=== PATIENT | male | born 1960 | race Caucasian/White ===

== ENCOUNTER → 2016-10-03 | Outpatient (CLI) | payer OTHER ==
[2016-10-03 09:09] LABS: BASO % 0.7 % (0.0-1.0); EOS # 0.2 K/mm3 (0.0-0.50); EOS % 4.1 % (0.0-3.0); LARGE UNSTAINED CELL # 0.1 K/mm3 (0.0-0.4); LARGE UNSTAINED CELL % 2.7 % (0.0-4.0); LYMPH # 0.9 K/mm3 (1.5-4.5); MEAN CORPUSCULAR HGB CONC 34.8 g/dl (32.0-36.5); MEAN CORPUSCULAR VOLUME 97.5 fl (80.0-96.0); MONO # 0.2 K/mm3 (0.0-0.8); MONO % 5.2 % (0.0-5.0); NEUTROPHILS # 2.6 K/mm3 (1.8-7.7); NEUTROPHILS % 64.2 % (36.0-66.0); PLATELET COUNT, AUTOMATED 197 k/mm3 (150-450); RED CELL DISTRIBUTION WIDTH 12.5 % (11.5-14.5); WHITE BLOOD COUNT 4.1 K/mm3 (4.0-10.0)
[2016-10-03 09:24] LABS: ANION GAP 6 MEQ/L (8-16); BLOOD UREA NITROGEN 5 MG/DL (7-18); CARBON DIOXIDE LEVEL 36 MEQ/L (21-32); CHLORIDE LEVEL 104 MEQ/L (98-107); GLOMERULAR FILTRATION RATE > 60.0 (>56); GLUCOSE, FASTING 82 MG/DL (70-105); POTASSIUM SERUM 3.9 MEQ/L (3.5-5.1); SODIUM LEVEL 146 MEQ/L (136-145)
== END ==
LOC: M LAB 08:48
PROVIDERS: ATTEND Internal Medicine Hepatology
DX: E11.43 Type 2 diabetes mellitus with diabetic autonomic (poly)neuropathy (principal)

== ENCOUNTER 2016-10-24 17:13 | Emergency (ER) | payer OTHER ==
[2016-10-24] MEDS ORDERED: MORPHINE 2 MG/ML 1ML SYRINGE As Ordered ONE (17:50)
[2016-10-24 18:30] LABS: BASO % 1.1 % (0.0-1.0); EOS # 0.2 K/mm3 (0.0-0.50); EOS % 5.1 % (0.0-3.0); LARGE UNSTAINED CELL # 0.1 K/mm3 (0.0-0.4); LARGE UNSTAINED CELL % 2.6 % (0.0-4.0); LYMPH # 1.4 K/mm3 (1.5-4.5); LYMPH % 26.5 % (24.0-44.0); MEAN CORPUSCULAR HEMOGLOBIN 35.2 pg (27.0-33.0); MEAN CORPUSCULAR HGB CONC 36.2 g/dl (32.0-36.5); MEAN CORPUSCULAR VOLUME 97.3 fl (80.0-96.0); MONO # 0.3 K/mm3 (0.0-0.8); MONO % 6.3 % (0.0-5.0); NEUTROPHILS # 2.7 K/mm3 (1.8-7.7); NEUTROPHILS % 58.3 % (36.0-66.0); PLATELET COUNT, AUTOMATED 216 k/mm3 (150-450); RED CELL DISTRIBUTION WIDTH 13.1 % (11.5-14.5); WHITE BLOOD COUNT 4.7 K/mm3 (4.0-10.0)
[2016-10-24 18:39] LABS: ANION GAP 7 MEQ/L (8-16); BLOOD UREA NITROGEN 17 MG/DL (7-18); CALCIUM LEVEL 9.6 MG/DL (8.5-10.1); CARBON DIOXIDE LEVEL 33 MEQ/L (21-32); CHLORIDE LEVEL 104 MEQ/L (98-107); CREATININE FOR GFR 0.88 MG/DL (0.70-1.30); GLOMERULAR FILTRATION RATE > 60.0 (>56); GLUCOSE, FASTING 103 MG/DL (70-105); POTASSIUM SERUM 4.1 MEQ/L (3.5-5.1); SODIUM LEVEL 144 MEQ/L (136-145)
[2016-10-24] MEDS ORDERED: ISOVUE-370 76% 100ML VIAL (Q9967) As Ordered ONE (18:41)
--- NOTE | 2016-10-24 19:17 | REP ---
Clinical: Trauma . Comparison: None . Findings: The ventricles, sulci, and cisterns are normal in position and appearance. Phillip-white differentiation is maintained. No acute intracranial hemorrhage, mass/mass effect, pathology or trauma/injury. No evidence for acute infarction. No extra-axial fluid collection. Calvarium is intact. Paranasal sinuses and mastoid air cells are clear. Impression: Normal noncontrast head CT. No evidence for acute intracranial pathology or trauma/injury. Signed by Sd Smallwood MD 10/24/2016 07:08 P
--- NOTE | 2016-10-24 19:19 | REP ---
Clinical: Trauma. Technique: Axial noncontrast images from the skull base to the thoracic inlet with coronal and sagittal re-formations. Comparison: 08/31/2012. Findings: Alignment and lordosis is maintained / stable and there is no evidence for acute fracture / compression injury or subluxation. Moderate multilevel degenerative disc osteophyte complexes noted at the C3-4 through C6-7 levels with subtle marginal spurring, disc space narrowing, and small chronic posterior disc bulges similar to prior examination. Mild associated canal stenosis is suggested. The posterior elements and spinous processes are stable and without acute fracture; old injury at the T1 spinous process is unchanged. Paravertebral soft tissues are normal. Impression: No acute fracture / compression injury or subluxation. Moderate multilevel degenerative changes as described above similar to 2012. Signed by Sd Smallwood MD 10/24/2016 07:12 P
--- NOTE | 2016-10-24 19:22 | REP ---
Clinical: Trauma. Technique: Axial images from C6 through L1 with coronal and sagittal re-formations. Findings: Alignment and kyphosis maintained. No acute fracture / compression injury or subluxation is appreciated. Moderate multilevel degenerative changes include endplate irregularities with minimal disc space narrowing and predominately anterolateral right-sided osteophytosis. Spinal canal appears patent. The posterior elements and spinous processes are intact. Impression: Moderate multilevel degenerative changes. No acute fracture / compression injury or subluxation. Signed by Sd Smallwood MD 10/24/2016 07:14 P
--- NOTE | 2016-10-24 19:25 | REP ---
Clinical: Trauma. Technique: Axial noncontrast images from T12 through mid sacrum with coronal and sagittal re-formations. Findings: Alignment and lordosis maintained. There is no evidence for acute fracture / compression injury or subluxation. Moderate multilevel degenerative changes include osteophytosis, endplate sclerosis and disc space narrowing as well as mild hypertrophic facet changes. Findings are most pronounced at the L5-L1 level. Axial soft tissue imaging demonstrates hypertrophic facet changes and ligamentum flavum hypertrophy causing mild canal stenosis at L3-4, L4-5, and L5-L1. Impression: 1. No acute fracture / compression injury or subluxation. 2. Moderate to early advanced multilevel degenerative changes. Signed by Sd Smallwood MD 10/24/2016 07:17 P
--- NOTE | 2016-10-24 19:34 | REP ---
Clinical: Trauma. Technique: Axial contrast enhanced images from the lung bases to the pubic symphysis using 100 ml Isovue 370 intravenous contrast material with coronal and sagittal re-formations. Findings: Lung bases are clear. Visualized portions of the heart and pericardium normal. Liver, spleen, pancreas, gallbladder, bilateral adrenal glands and kidneys are relatively normal. There is no evidence for solid organ injury. A 1.5 cm left renal hypodensities most compatible with cyst. No perinephric stranding is appreciated. A gastrojejunostomy tube is in satisfactory position. There is no evidence for bowel obstruction or acute inflammatory process. Pelvis demonstrates normal bladder and age appropriate prostate/seminal vesicles. No pelvic fluid or ascites. No free air. No adenopathy. Abdominal aorta and vasculature appears normal. Musculoskeletal structures demonstrate age-related changes without evidence for trauma/injury Impression: Gastrojejunostomy tube in satisfactory position. 1.5 cm left renal hypodensity most compatible with cyst. No acute intra-abdominal/pelvic pathology, or trauma/injury. Signed by Sd Smallwood MD 10/24/2016 07:26 P
--- NOTE | 2016-10-24 19:34 | REP ---
Clinical: Trauma. Technique: Axial contrast enhanced images from the thoracic inlet to the upper abdomen using 100 ml Isovue 370 intravenous contrast material with coronal and sagittal re-formations. Findings: The bilateral lung martinez are symmetric, well aerated, and clear. No acute consolidation/contusion, nodule or mass lesion. No pleural effusion/reaction or pneumothorax. Tracheobronchial tree is patent. The mediastinum including heart/pericardium and thoracic aorta appear normal. No pericardial effusion. Surrounding osseous structures are intact without evidence for acute injury or fracture / dislocation. Limited evaluation of the upper abdomen demonstrates gastrojejunostomy tube in stable satisfactory position. Incompletely identified left renal hypodensity likely representing cyst. Impression: Normal contrast enhanced chest CT. No evidence for acute trauma/injury. No acute mediastinal or pleuroparenchymal process. Signed by Sd Smallwood MD 10/24/2016 07:26 P
--- NOTE | 2016-10-24 19:46 | REP ---
Clinical: Trauma. Technique: AP, lateral, bilateral oblique views of the right ankle. Findings: Degenerative changes are appreciated which significantly limit evaluation. No obvious acute fracture or dislocation is appreciated, but subtle acute injury to the lateral malleolus cannot definitively be excluded. Ankle mortise intact. Impression: Limited by degenerative changes. No definite acute fracture appreciated. Clinical correlation is recommended and if necessary repeat evaluation in 3-5 days may be warranted. Signed by Sd Smallwood MD 10/24/2016 07:37 P
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
== END 2016-10-24 20:44 | disposition home or self-care (01) ==
LOC: M ED 17:13
DX: S29.012A Strain of muscle and tendon of back wall of thorax, initial encounter (principal); V43.52XA Car driver injured in collision with other type car in traffic accident, initial encounter; Y92.410 Unspecified street and highway as the place of occurrence of the external cause; Y93.9 Activity, unspecified; Y99.9 Unspecified external cause status; F41.9 Anxiety disorder, unspecified; J45.909 Unspecified asthma, uncomplicated; M79.7 Fibromyalgia; E03.9 Hypothyroidism, unspecified; F43.10 Post-traumatic stress disorder, unspecified; M25.50 Pain in unspecified joint; Z79.82 Long term (current) use of aspirin; Z79.899 Other long term (current) drug therapy; Z88.1 Allergy status to other antibiotic agents; Z88.8 Allergy status to other drugs, medicaments and biological substances; Z88.0 Allergy status to penicillin; Z88.5 Allergy status to narcotic agent
CPT/HCPCS: 36415; 70450; 71260; 72125; 72128; 72131; 73610; 74177; 80048; 85025; 96374; 99284; Q9967

== ENCOUNTER → 2016-10-28 | Outpatient (CLI) | payer OTHER ==
--- NOTE | 2016-10-29 00:14 | ECWPNPC ---
PATIENT NAME: NIKI WEEMS : 1960 GENDER: MALE VISIT DATE: 10/28/2016 DISCHARGE DATE: 10/28/16 1236 VISIT LOCKED DATE TIME: PHYSICIAN: CROW MERCER RESOURCE: CROW MERCER REASON FOR APPOINTMENT 1. FIBROMYALGIA HISTORY OF PRESENT ILLNESS NEW PATIENT CONSULT: WHEN DID YOUR PAIN FIRST START? . BRIEFLY DESCRIBE HOW YOUR PAIN STARTED? . HOW DOES YOUR PAIN CHANGE WITH TIME? . DOES YOUR PAIN AWAKEN YOU FROM SLEEP? . HOW MANY HOURS OF SLEEP DO YOU NORMALLY GET? . ANY DIAGNOSTIC TESTING? . FACILITY WHERE TESTS WERE DONE? ____. PAIN TREATMENT TREATMENT YES CANCER HAVE YOU EVER HAD ANY TYPE OF CANCER?NO NO. PAIN SCREENING: PATIENT HAS A COMPLAINT OF ACUTE OR CHRONIC PAIN YES FALL RISK SCREENING: SCREENING :NO FALLS IN THE PAST YEAR PATTON INVENTORY: QUESTIONNAIRE ASSESSEDYES SCORE VALUE CALCULATED YES SCORE: 19/63. DENIES SUICIDAL OR HOMICIDAL IDEATION TODAY'S VISIT: NOTES: PT REFERRED BY PCP DR PRATHER FOR EVAL AND CARE FOR CHRONIC GENERALIZED PAIN/FIBROMYALGIA. HAS BEEN SEE BY DR GARLAND (RHEUMATOLOGY) AND DR ALVIN MOORE (PAIN MANAGMENT). AT [facility] HAD SOME GENERALIZED DISCOMFORT PRIOR TO 2008 - HAD SEVERE PANIC ATTACK WHICH FELT LIKE A HEART ATTACK. THEN DEVELOPED AN IDIOPATHIC GASTROPARESIS WHICH CAUSED SEVERE WEIGHT LOSS. DEVELOPED SEVERE ALLERGIES AT THIS TIME. SAW DR GARLAND WHO DX FIBRO AND PMR. STATES PREDNISONE CAUSES SEVERE JITTERYNESS SO THIS WAS NOT STARTED. WAS SENT TO SEE DR MOORE WHO RECOMMENDED CYMBALTA BUT FEELS HE CAN NOT USE SERROTONIN MEDS. MARINOLNWAS HELPFUL BUT THIS STOPPED BEING EFFECTIVE. PAIN IS EVERYWHERE. THE WORST IS INCHEST WALL, IN NECK AND ACROSS LOW BACK. SAW DR LIAO IN [place] WHO SAID, "IT'S ALL IN HIS HEAD". EXERCISE CCAN HELP FOR A FEW HOURS.RATES PAIN TODAY 6/10. STATES THE MOST EFFECTIVE TREATMENT HAS BEEN EXERCISE. NOTES MORNINGS ARE THE WORST. CURRENT MEDICATIONS TAKING ADVAIR DISKUS 250-50 MCG/DOSE MISCELLANEOUS INHALATION TAKING PRAVASTATIN SODIUM 40 MG TABLET 1 TABLET ORALLY ONCE A DAY TAKING LEVOTHYROXINE SODIUM 25 MCG TABLET 1 TABLET ON AN EMPTY STOMACH IN THE MORNING ORALLY ONCE A DAY TAKING ALBUTEROL 90 MCG/ACT AEROSOL SOLUTION INHALATION TAKING ZYRTEC 10 MG TABLET 1 TABLET ORALLY ONCE A DAY TAKING CLONAZEPAM 1 MG TABLET 1 TABLET ORALLY TID PRN TAKING ASPIR-81 81 MG TABLET DELAYED RELEASE 1 TABLET ORALLY ONCE A DAY TAKING NEXIUM 40 MG CAPSULE DELAYED RELEASE 1 CAPSULE ORALLY ONCE A DAY NOT-TAKING MARINOL 5 MG CAPSULE 1 CAPSULE BEFORE LUNCH AND SUPPER ORALLY TWICE A DAY MEDICATION LIST REVIEWED AND RECONCILED WITH THE PATIENT PAST MEDICAL HISTORY ABNORMAL WT LOSS ALLERGIC RHINITIS ANXIETY DISORDER ASTHMA CHOLELITHIASIS CARPAL TUNNEL SYNDROM ESOPHAGEAL REFLUX FIBROMYALGIA HYPERLIPIDEMIA HYPOTHYROIDISM INTERVERTEBRAL DISC DEGENERATION PTSD SPERMATOCELE THYROID NODULE ALLERGIES CODEIN DERIVATIVES : N/V: SIDE EFFECTS ROCEPHIN: ANAPHYLAXIS VIBRAMYCIN: HIVES CEFTRIAXONE SODIUM: ANAPHYLAXIS SURGICAL HISTORY LEFT ACL 1983 REMOVED LEFT ACL STAPLESRT 2014 RIGHT ACL 1996 APPENECTEMY 1980 SINUS FOR SLEEP APNEA 1996 T&A 1996 GJ TUBE 2017` FAMILY HISTORY FATHER: MOTHER: SIBLINGS: ALIVE SON(S): ALIVE SOCIAL HISTORY GENERAL: TOBACCO USE ARE YOU A:NONSMOKER RECREATIONAL DRUG USE DRUG USE?NO CAFFEINE CAFFEINE USE?YES HOW OFTEN AND HOW MUCH? 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 DIET: TRYING TO TOLERATE/ LIQUID SOFT. EXERCISE: DAILY, WALKS. MARITAL STATUS: . OTHERS AT HOME: SPOUSE. HINDUISM: CHRISTION. LANGUAGE: SYRIAC. EDUCATION: [facility] [employer]. LEARNING BARRIERS / SPECIAL NEEDS [facility] [employer]. PSYCHOLOGICAL HX TREATMENTNO PAIN CLINIC PFS, CLERGY, PUBLIC HEALTH REFERRALS CLERGY REFERRAL NEEDED?NO WAS THE PROVIDER NOTIFIED OF ANY PERTINENT INFO?NO PFS REFERRAL NEEDED?NO PUBLIC HEALTH REFERRAL NEEDED?NO PATIENT: ____. ADVANCED DIRECTIVES HEALTH CARE PROXY?NO POWER OF ADMINISTRATIVE PROFESSIONAL?NO HOSPITALIZATION/MAJOR DIAGNOSTIC PROCEDURE DEHYDRATTION "SYSTEM SHUT DOWN" [place] 2016 REVIEW OF SYSTEMS CONSTITUTIONAL: ANY CHANGE IN YOUR MEDICAL CONDITION? NO . CHILLS NO . FEVER NO . INFECTION: DO YOU HAVE NEW INFECTIONS? NO . DO YOU HAVE HISTORY OF MRSA? NO . MUSCULOSKELETAL: ANY NEW PATTERNS OF PAIN OR NUMBNESS? NO . SYTEMIC LUPUS NO . GASTROENTEROLOGY: ANY NEW CHANGE IN BOWEL CONTROL? NO . BARRETTS ESOPHAGUS YES - J TUBE STARTED FOR NUTRITION STARTED AFTER SEVERE PAIN/ESOPHAGEL SWELLING 2 WEEKS AGO. . CIRRHOSIS NO . HEPATITIS NO . LIVER FAILURE NO . ACID REFLUX NO . UNEXPLAINED WEIGHT LOSS NO . GENITOURINARY: ANY NEW CHANGE IN BLADDER CONTROL? NO . IS THERE A CHANCE YOU COULD BE ? NO . HEMATOLOGY/LYMPH: DO YOU TAKE ANY BLOOD THINNERS? (FOR EXAMPLE- COUMADIN, PLAVIX, AGGRENOX, PLATEL, PRADAXA, OR XARELTO) NO . WHEN WAS YOUR LAST DOSE? DATE: TIME: . LOW PLATELET COUNT NO . SICKLE CELL DISEASE NO . VON WILLIEBRANDS NO . FACTOR V LEIDEN NO . THALLASEMIA NO . ANEMIA NO . EASY BRUISING NO . NEUROLOGY: HAVE YOU FALLEN IN THE PAST 6 MONTHS? NO . ANY NEW EXTREMITY NUMBNESS OR WEAKNESS? NO . HEAD INJURY NO . DEMENTIA NO . CEREBRAL PALSY NO . MULTIPLE SCLEROSIS NO . DIZZINESS NO . HEADACHE NO . STROKES NO . VERTIGO NO . CARDIOLOGY: DO YOU HAVE A PACEMAKER OR DEFIBRILLATOR? NO . ANGINA NO . HEART ATTACK NO . HEART SURGERY NO . CONGESTIVE HEART FAILURE/FLUID OVERLOAD NO . CHEST PAIN NO . HIGH BLOOD PRESSURE NO . IRREGULAR HEART BEAT NO . RESPIRATORY: HAVE YOU BEEN SICK IN THE PAST WEEK? NO . FEVER NO . FLU LIKE SYMPTOMS? NO . CPAP NO . BYPAP NO . ASTHMA NO . EMPHYSEMA NO . CHRONIC LUNG DISEASES NO . SHORTNESS OF BREATH ON EXERTION NO . DO YOU USE ANY TYPE OF TOBACCO (SMOKE, SMOKELESS, CHEW)? NO . COUGH NO . SNORING NO . INTEGUMENTARY: DO YOU HAVE ANY RASHES OR OPEN SORES? NO . ALLERGIC/IMMUNO: ARE YOU ALLERGIC TO SHELLFISH OR IV DYE? NO . ANY NEW ALLERGIES? NO . PSYCHIATRIC: DO YOU HAVE THOUGHTS OF HURTING YOURSELF OR SOMEONE ELSE? NO . ARE YOU ABUSED, NEGLECTED, OR IN AN UNSAFE ENVIRONMENT? NO . ENDOCRINOLOGY: ARE YOU DIABETIC? NO . THYROID DISORDER NO . OTHER: DO YOU NEED ANY PRESCRIPTIONS? NO . IF YES, PLEASE LIST: ____ . ANY NEW PROBLEMS WITH YOUR MEDICATIONS? NO . WHEN DID YOU LAST EAT? ____ . WHEN DID YOU LAST DRINK? ____ . WHAT DID YOU LAST DRINK? ____ . NAME OF PERSON DRIVING YOU HOME? ____ . DO YOU HAVE ANY OTHER QUESTIONS OR CONCERNS NO . PSYCHOLOGY: ANXIETY PTSD - SEES [facility] AND A COUNSELOR EVERY 2 WEEKS . REVIEWED BY: PROVIDER: . VITAL SIGNS WT 146 LBS, HT 69 IN, BMI 21.56 INDEX, BP 125/77 MM HG, HR 86 /MIN, RR 16 /MIN, TEMP 96.7 F, OXYGEN SAT % 96%, NA INITIALS SC 10:56, REVIEWED BY: KG. EXAMINATION GENERAL EXAMINATION: GENERAL APPEARANCE:THIN. PSYCHALERT , ORIENTED X 3 , GOOD EYE CONTACT. HEENT:NORMOCEPHALIC, NO LYMPHADENOPATHY, NO THYROMEGLY. CHEST:PROMINANT RIGHT STERNOCLAVICULAR JOINT, TENDER TO TOUCH. LUNGS:CLEAR TO AUSCULTATION BILATERALLY, NO WHEEZES, RALES OR RHONCHI. HEART:NORMAL S1S2, NO S3, S4, MURMUR OR RUB. ABDOMEN:SOFT, NON-TENDER/NON-DISTENDED, BOWEL SOUNDS PRESENT. JTUBE PRESENT LUQ. MUSCULOSKELETAL:MUSCLE STRENGTH TESTING 5/5 BILATERAL UPPER NAD LOWER QUADRANTS.TENDER POINTS PRESENT ABOVE AND BELOW THE WAIST, BOTH SIIDES OF THE BODY, CONSISTANT WITH FIBROMYALGIA. NEUROLOGIC EXAM:CN'S II-XII GROSSLY INTACT. NO SENSORY DEFICEIT. DTR'S 1+ BILATERAL UPPER AND LOWERE EXTREMITIES. DIAGNOSTIC TESTS REVIEWEDCT SCAN OF CERVICAL SPINE COMPLETED 10/24/16MODERATE MULTILEVEL EGENERATIVE DISC OSTEOPHYTE COMPLEXES NOTED AT C3-4 THROUGH C6-7 SIMILIAR TO IMAGING DONE IN 2011. NO FRACTURES OR SUBLUXATIONS. CT OF LUMBAR SPINE COMPLETED 10/24/16 DEMONSTARED MODERAT TO ADVANCED MULTILEVE DEGENERATIVE CHANGES.CT OF THORACIC SPINE 10/24/16 DEMONSTRATED MODERATE MULTILEVEL DEGENERATIVE CHANGES. ASSESSMENTS FIBROMYALGIA - M79.7 (PRIMARY) ARTHRALGIA OF SHOULDER, UNSPECIFIED LATERALITY - M25.519 DEGENERATIVE DISC DISEASE, CERVICAL - M50.30 DEGENERATIVE DISC DISEASE, THORACIC - M51.34 DEGENERATIVE DISC DISEASE, LUMBAR - M51.36 TREATMENT FIBROMYALGIA NOTES: CONTINUE EXERCISE AND STRETCHES. CONTINUE WORKING WITH COUNSELOR FOR MINDFULNESS AND COGNITIVE BEHAVIORAL THERAPY. CONSIDER MEDICAL MARIJUANA. CLINICAL NOTES: DISCUSSION HELD WITH PATIENT REGARDING OPTIONS FOR CARE. HE IS NOT COMFORTALE WITH THE ADDITION OF MEDICATIONS WHICH AFFECT SEROTONIN AND I DID EXPLAIN THAT WE WOULD NOT CONSIDER OPIOIDS AN OPTION DUE TO THEIR MINIMAL EFFECT WITH FIBROMYALGIA AND THE COMORBID BOWEL ISSUES. WE DID DISCUSS OPTION OF A SEVICE/THERAPY DOG, AND REGARDING THE USE OF MEDICAL MARIJUANA. DID GIVE HIM RESOUCES FOR THESE OPTIONS. PROCEDURE CODES FA211 ESTABILISHED PATIENT [facility] FACILITY CHARGE DISPOSITION & COMMUNICATION FOLLOW UP 1 MONTH (REASON: NEED OFFICE NOTES FROM DR GARLAND [facility] RHEUMATOLOGY, DR CHASE ACOSTA, ) ELECTRONICALLY SIGNED BY STANLEY LARSON ON 10/28/2016 AT 05:18 PM EST DISCLAIMER : THIS IS A VISIT SUMMARY EXTRACTED FROM THE [employer] CHART. IT IS NOT A COPY OF THE [employer] PROGRESS NOTE. TERI
== END ==
LOC: M PAIN 11:20
PROVIDERS: ATTEND Nurse Practitioner Family
DX: M79.7 Fibromyalgia (principal); M25.519 Pain in unspecified shoulder; M50.30 Other cervical disc degeneration, unspecified cervical region; M51.34 Other intervertebral disc degeneration, thoracic region; M51.36 Other intervertebral disc degeneration, lumbar region; F41.9 Anxiety disorder, unspecified; J45.909 Unspecified asthma, uncomplicated; K21.9 Gastro-esophageal reflux disease without esophagitis; E78.5 Hyperlipidemia, unspecified; E03.9 Hypothyroidism, unspecified; F43.10 Post-traumatic stress disorder, unspecified; Z88.5 Allergy status to narcotic agent; Z88.8 Allergy status to other drugs, medicaments and biological substances; Z88.1 Allergy status to other antibiotic agents; Z79.51 Long term (current) use of inhaled steroids; Z79.82 Long term (current) use of aspirin; Z79.899 Other long term (current) drug therapy

== ENCOUNTER 2017-02-02 19:33 | Emergency (ER) | payer OTHER ==
[~2017-02-02] VITALS: Ht 175.3 cm; Wt 68.9 kg
[2017-02-02] MEDS ORDERED: IPRA6SP INH (20:05)
[2017-02-02] MEDS ORDERED: NYST50SS (20:05)
[2017-02-02] MEDS ORDERED: CLON1TAB (20:05)
[2017-02-02] MEDS ORDERED: NEXI40CA PO (20:05)
[2017-02-02] MEDS ORDERED: VITABCTA (20:05)
[2017-02-02] MEDS ORDERED: ASPI1TAB PO (20:05)
[2017-02-02] MEDS ORDERED: VITA400D3 PO (20:05)
[2017-02-02] MEDS ORDERED: ADVAIR INH (20:05)
[2017-02-02] MEDS ORDERED: PRAV40TA2 (20:05)
[2017-02-02] MEDS ORDERED: LEVO25TA5 PO (20:05)
[2017-02-02] MEDS ORDERED: OSMOLIQ PO (20:05)
[2017-02-02] MEDS ORDERED: MIRA3350 PO (20:05)
[2017-02-02] MEDS ORDERED: ONDANSETRON 4MG/2ML VIAL (J2405) IV ONE (20:30)
[2017-02-02] MEDS ORDERED: NS 1,000 ML IV ONE (20:30)
[2017-02-02] MEDS ORDERED: MORPHINE 4 MG/ML 1ML SYRINGE IV PRN (20:30)
[2017-02-02 20:48] LABS: BASO # 0.1 K/mm3 (0.0-0.2); BASO % 0.8 % (0.0-1.0); EOS # 0.3 K/mm3 (0.0-0.50); EOS % 3.9 % (0.0-3.0); LARGE UNSTAINED CELL # 0.1 K/mm3 (0.0-0.4); LYMPH # 1.1 K/mm3 (1.5-4.5); LYMPH % 14.4 % (24.0-44.0); MEAN CORPUSCULAR HEMOGLOBIN 35.2 pg (27.0-33.0); MEAN CORPUSCULAR HGB CONC 35.2 g/dl (32.0-36.5); MEAN CORPUSCULAR VOLUME 99.9 fl (80.0-96.0); MONO # 0.3 K/mm3 (0.0-0.8); MONO % 3.3 % (0.0-5.0); NEUTROPHILS # 5.7 K/mm3 (1.8-7.7); NEUTROPHILS % 76.6 % (36.0-66.0); PLATELET COUNT, AUTOMATED 172 k/mm3 (150-450); RED CELL DISTRIBUTION WIDTH 12.8 % (11.5-14.5); WHITE BLOOD COUNT 7.4 K/mm3 (4.0-10.0)
[2017-02-02 20:50] LABS: ALBUMIN/GLOBULIN RATIO 1.11 (1.00-1.93); ALKALINE PHOSPHATASE 80 U/L (45-117); ALT/SGPT 49 U/L (12-78); ANION GAP 5 MEQ/L (8-16); AST/SGOT 36 U/L (15-37); BILIRUBIN,DIRECT 0.3 MG/DL (0.0-0.2); BILIRUBIN,TOTAL 1.1 MG/DL (0.2-1.0); BLOOD UREA NITROGEN 16 MG/DL (7-18); CALCIUM LEVEL 9.5 MG/DL (8.5-10.1); CARBON DIOXIDE LEVEL 34 MEQ/L (21-32); CHLORIDE LEVEL 102 MEQ/L (98-107); CREATININE FOR GFR 1.02 MG/DL (0.70-1.30); GLOMERULAR FILTRATION RATE > 60.0 (>56); GLUCOSE, FASTING 145 MG/DL (70-105); SODIUM LEVEL 141 MEQ/L (136-145); TOTAL PROTEIN 7.6 GM/DL (6.4-8.2)
--- NOTE | 2017-02-02 21:20 | REPUSA ---
CT of the abdomen and pelvis without contrast Clinical statement: Pain. Technique: Multiple axial CT images were obtained from the base of the lungs to the floor of the pelv is utilizing 5 mm axial slices after administration of oral contrast. Coronal and sagittal reconstru ctions were also obtained. Comparison: 10/24/2016. Findings: Chest: The visualized lung bases are clear. Abdomen: The kidneys are normal in size bilaterally. There is no evidence of hydronephrosis or nephro lithiasis. The liver, spleen, pancreas, gallbladder and adrenal glands are unremarkable. The aorta de monstrates normal caliber and contour. There is no abdominal lymphadenopathy or ascites. Percutaneous feeding tube is in place, with the tip in the proximal jejunum. Pelvis: The bowel is unremarkable, with no obstructive or inflammatory changes. The urinary bladder i s within normal limits. There is no pelvic lymphadenopathy or ascites. The other pelvic structures ap pear unremarkable. Bones: There are no suspicious osseous abnormalities seen. There is moderate degenerative disc diseas e at L5/S1. Impression: 1. Percutaneous feeding tube is in satisfactory position. 2. No obstructive or inflammatory bowel changes. 3. No evidence of hydronephrosis or nephrolithiasis.
[2017-02-02] MEDS ORDERED: MORP15TA2 PO (21:53)
[2017-02-02] MEDS ORDERED: MORPHINE 15 MG SA TAB PO ONE (22:00)
[2017-02-02 22:10] VITALS: BP 124/69
--- NOTE | 2017-02-04 07:20 | ECGEPIP ---
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
== END 2017-02-02 22:11 | disposition home or self-care (01) ==
LOC: M ED 21:01
DX: R10.9 Unspecified abdominal pain (principal); R11.10 Vomiting, unspecified; K59.04 Chronic idiopathic constipation; K31.84 Gastroparesis; Z93.1 Gastrostomy status; Z87.891 Personal history of nicotine dependence; Z98.890 Other specified postprocedural states; Z79.899 Other long term (current) drug therapy; Z79.82 Long term (current) use of aspirin; Z88.8 Allergy status to other drugs, medicaments and biological substances; Z88.1 Allergy status to other antibiotic agents; Z88.5 Allergy status to narcotic agent; Z88.4 Allergy status to anesthetic agent
CPT/HCPCS: 74176; 80048; 80076; 82550; 82553; 83690; 85025; 93005; 93041; 96361; 96374; 96375; 99284; J2405

== ENCOUNTER 2017-05-10 05:51 | Emergency (ER) | payer OTHER ==
[~2017-05-10] VITALS: Ht 175.3 cm; Wt 66.0 kg
[~2017-05-10 05:51] MED LIST: ADVAIR INH; ASPI1TAB PO; CLON1TAB; IPRA6SP INH; LEVO25TA5 PO; MIRA3350 PO; MORP15TA2 PO; NEXI40CA PO; NYST50SS; OSMOLIQ PO; PRAV40TA2; VITA400D PO; VITABCTA
[2017-05-10] MEDS ORDERED: MARI5CAP PO (06:16)
[2017-05-10] MEDS ORDERED: NEXI40GR PO (06:16)
[2017-05-10] MEDS ORDERED: ONDA4TAB6 PO (06:16)
[2017-05-10] MEDS ORDERED: ONDANSETRON 4MG/2ML VIAL (J2405) IV PRN (06:45)
[2017-05-10] MEDS ORDERED: KETOROLAC 30 MG/ML VIAL (J1885) IV ONE (06:45)
[2017-05-10] MEDS ORDERED: NS 1,000 ML IV ONE (06:45)
[2017-05-10 07:05] LABS: BASO % 0.9 % (0.0-1.0); EOS # 0.2 K/mm3 (0.0-0.50); EOS % 5.5 % (0.0-3.0); LARGE UNSTAINED CELL # 0.1 K/mm3 (0.0-0.4); LARGE UNSTAINED CELL % 2.6 % (0.0-4.0); LYMPH # 0.9 K/mm3 (1.5-4.5); LYMPH % 21.6 % (24.0-44.0); MEAN CORPUSCULAR HEMOGLOBIN 35.5 pg (27.0-33.0); MEAN CORPUSCULAR VOLUME 98.6 fl (80.0-96.0); MONO # 0.2 K/mm3 (0.0-0.8); NEUTROPHILS # 2.7 K/mm3 (1.8-7.7); NEUTROPHILS % 64.4 % (36.0-66.0); PLATELET COUNT, AUTOMATED 152 k/mm3 (150-450); RED CELL DISTRIBUTION WIDTH 12.3 % (11.5-14.5); WHITE BLOOD COUNT 4.2 K/mm3 (4.0-10.0)
[2017-05-10 07:18] LABS: ALBUMIN 3.8 GM/DL (3.2-5.2); ALBUMIN/GLOBULIN RATIO 1.19 (1.00-1.93); ALKALINE PHOSPHATASE 63 U/L (45-117); ALT/SGPT 43 U/L (12-78); ANION GAP 7 MEQ/L (8-16); AST/SGOT 32 U/L (15-37); BILIRUBIN,DIRECT 0.2 MG/DL (0.0-0.2); BILIRUBIN,TOTAL 0.9 MG/DL (0.2-1.0); BLOOD UREA NITROGEN 16 MG/DL (7-18); CALCIUM LEVEL 9.7 MG/DL (8.5-10.1); CARBON DIOXIDE LEVEL 31 MEQ/L (21-32); CHLORIDE LEVEL 105 MEQ/L (98-107); CREATININE FOR GFR 0.88 MG/DL (0.70-1.30); GLOMERULAR FILTRATION RATE > 60.0 (>56); GLUCOSE, FASTING 93 MG/DL (70-105); SODIUM LEVEL 143 MEQ/L (136-145)
[2017-05-10] MEDS ORDERED: ZOFR4TAB3 PO (08:23)
[2017-05-10] MEDS ORDERED: VALI5TAB PO (08:23)
[2017-05-10 08:31] VITALS: BP 112/61
== END 2017-05-10 08:31 | disposition home or self-care (01) ==
LOC: M ED 05:51 → EDBD 05:51 → M ED 08:31
DX: S39.012A Strain of muscle, fascia and tendon of lower back, initial encounter (principal); X50.9XXA Other and unspecified overexertion or strenuous movements or postures, initial encounter; Y92.89 Other specified places as the place of occurrence of the external cause; Y93.89 Activity, other specified; Y99.8 Other external cause status; J45.909 Unspecified asthma, uncomplicated; F43.10 Post-traumatic stress disorder, unspecified; E07.9 Disorder of thyroid, unspecified; M79.7 Fibromyalgia; Z88.8 Allergy status to other drugs, medicaments and biological substances; Z88.1 Allergy status to other antibiotic agents; Z88.5 Allergy status to narcotic agent; Z79.899 Other long term (current) drug therapy
CPT/HCPCS: 80048; 80076; 81001; 83690; 85025; 96361; 96374; 96375; 99284; J1885; J3360

== ENCOUNTER → 2017-08-16 | Outpatient (CLI) | payer OTHER | LOC: M PAIN 14:15 | DX: G89.29 Other chronic pain (principal); M79.7 Fibromyalgia; M25.519 Pain in unspecified shoulder; M50.30 Other cervical disc degeneration, unspecified cervical region; M51.34 Other intervertebral disc degeneration, thoracic region; M51.36 Other intervertebral disc degeneration, lumbar region; F41.9 Anxiety disorder, unspecified; J45.909 Unspecified asthma, uncomplicated; K21.9 Gastro-esophageal reflux disease without esophagitis; E78.5 Hyperlipidemia, unspecified; E03.9 Hypothyroidism, unspecified; F43.10 Post-traumatic stress disorder, unspecified; R63.4 Abnormal weight loss; E04.1 Nontoxic single thyroid nodule; Z88.5 Allergy status to narcotic agent; Z88.1 Allergy status to other antibiotic agents; Z88.8 Allergy status to other drugs, medicaments and biological substances; Z79.82 Long term (current) use of aspirin; Z79.899 Other long term (current) drug therapy | CPT/HCPCS: G0463 ==

== ENCOUNTER → 2018-03-27 | Outpatient (CLI) | payer OTHER ==
[2018-03-27 15:13] LABS: HEMATOCRIT 45.8 % (42.0-52.0); MEAN CORPUSCULAR HEMOGLOBIN 34.9 pg (27.0-33.0); MEAN CORPUSCULAR HGB CONC 34.9 g/dl (32.0-36.5); MEAN CORPUSCULAR VOLUME 99.8 fl (80.0-96.0); PLATELET COUNT, AUTOMATED 156 10^3/uL (150-450); RED BLOOD COUNT 4.59 10^6/uL (4.30-6.10); RED CELL DISTRIBUTION WIDTH 12.2 % (11.5-14.5); WHITE BLOOD COUNT 5.7 10^3/uL (4.0-10.0)
[2018-03-27 15:24] LABS: ALBUMIN 3.7 GM/DL (3.2-5.2); ALBUMIN/GLOBULIN RATIO 1.19 (1.00-1.93); ALKALINE PHOSPHATASE 70 U/L (45-117); ALT/SGPT 48 U/L (12-78); ANION GAP 2 MEQ/L (8-16); AST/SGOT 34 U/L (7-37); BLOOD UREA NITROGEN 13 MG/DL (7-18); CARBON DIOXIDE LEVEL 33 MEQ/L (21-32); CHLORIDE LEVEL 106 MEQ/L (98-107); CREATININE FOR GFR 1.08 MG/DL (0.70-1.30); GLOMERULAR FILTRATION RATE > 60.0 (>56); GLUCOSE, FASTING 92 MG/DL (70-100); POTASSIUM SERUM 4.1 MEQ/L (3.5-5.1); RHEUMATOID FACTOR QUANT < 10.0 IU/ML (<15.0); SODIUM LEVEL 141 MEQ/L (136-145); TOTAL PROTEIN 6.8 GM/DL (6.4-8.2)
[2018-04-04 13:06] LABS: ANTINUCLEAR ANTIBODIES DIRECT Negative (Negative); B. HENSELAE IgG (CAT SCRATCH) Negative titer (Neg:<1:320); B. HENSELAE IgM (CAT SCRATCH) Negative titer (Neg:<1:100); B. QUINTANA IgG (CAT SCRATCH) Negative titer (Neg:<1:320); B. QUINTANA IgM (CAT SCRATCH) Negative titer (Neg:<1:100); BRUCELLA ABORTUS ANTIBODY Negative (Negative); EBV VIRAL CAPSID AG IgM <36.0 U/mL (0.0-35.9); Lyme Disease IgG/IgM Antibodie <0.91 ISR (0.00-0.90); Lyme Disease IgM Ab Quantitati <0.80 index (0.00-0.79); TOXOPLASMA IgG ABY 22.8 IU/mL (0.0-7.1)
== END ==
LOC: M LAB 14:25
DX: M25.50 Pain in unspecified joint (principal)
CPT/HCPCS: 80053

== ENCOUNTER 2018-05-15 08:44 | Emergency (ER) | payer OTHER ==
[2018-05-15 09:18] LABS: BASO # 0.1 10^3/uL (0.0-0.2); BASO % 0.9 % (0.0-1.0); EOS # 0.3 10^3/uL (0.0-0.50); EOS % 6.1 % (0.0-3.0); HEMATOCRIT 46.9 % (42.0-52.0); HEMOGLOBIN 16.5 g/dl (13.5-17.5); IMMATURE GRANULOCYTE % 0.2 % (0-3.0); LYMPH # 1.6 10^3/uL (1.5-4.5); LYMPH % 29.1 % (24.0-44.0); MEAN CORPUSCULAR HEMOGLOBIN 35.1 pg (27.0-33.0); MEAN CORPUSCULAR HGB CONC 35.2 g/dl (32.0-36.5); MEAN CORPUSCULAR VOLUME 99.8 fl (80.0-96.0); MONO # 0.5 10^3/uL (0.0-0.8); MONO % 9.5 % (0.0-5.0); NEUTROPHILS % 54.2 % (36.0-66.0); PLATELET COUNT, AUTOMATED 163 10^3/uL (150-450); RED CELL DISTRIBUTION WIDTH 12.4 % (11.5-14.5); WHITE BLOOD COUNT 5.6 10^3/uL (4.0-10.0)
[2018-05-15] MEDS: NS 1,000 ML IV (10:00)
[2018-05-15] MEDS: PANTOPRAZOLE 40MG INJ (PROTONIX) (C9113) IV (10:00)
[2018-05-15] MEDS: SUCRALFATE SUSP 1GM/10ML UD PO (10:00)
[2018-05-15 10:03] LABS: INR 1.08; PROTHROMBIN TIME 14.1 SECONDS (12.1-14.4)
[2018-05-15 10:04] LABS: ALBUMIN 3.9 GM/DL (3.2-5.2); ALKALINE PHOSPHATASE 72 U/L (45-117); ALT/SGPT 36 U/L (12-78); ANION GAP 7 MEQ/L (8-16); AST/SGOT 27 U/L (7-37); BILIRUBIN,DIRECT 0.2 MG/DL (0.0-0.2); BILIRUBIN,TOTAL 0.9 MG/DL (0.2-1.0); BLOOD UREA NITROGEN 16 MG/DL (7-18); CALCIUM LEVEL 9.3 MG/DL (8.5-10.1); CARBON DIOXIDE LEVEL 28 MEQ/L (21-32); CHLORIDE LEVEL 105 MEQ/L (98-107); CPK CREATINE PHOSPHOKINASE 183 U/L (39-308); CREATININE FOR GFR 1.13 MG/DL (0.70-1.30); GLOMERULAR FILTRATION RATE > 60.0 (>56); GLUCOSE, FASTING 102 MG/DL (70-100); MB/CK RELATIVE INDEX 1.26 (< OR =4); POTASSIUM SERUM 4.1 MEQ/L (3.5-5.1); SODIUM LEVEL 140 MEQ/L (136-145); TROPONIN I < 0.02 NG/ML (< 0.10)
[2018-05-15 10:29] LABS: D-DIMER QUANT 315.3 ng/ml (<500)
[2018-05-15 10:36] LABS: ALBUMIN/GLOBULIN RATIO 0.79 (1.00-1.93)
[2018-05-15 16:32] LABS: CPK CREATINE PHOSPHOKINASE 154 U/L (39-308); MB/CK RELATIVE INDEX 1.04 (< OR =4); TROPONIN I < 0.02 NG/ML (< 0.10)
== END 2018-05-15 17:11 | disposition home or self-care (01) ==
LOC: M ED 08:44
DX: R07.9 Chest pain, unspecified (principal); G89.29 Other chronic pain; R53.83 Other fatigue; I44.4 Left anterior fascicular block; Z86.19 Personal history of other infectious and parasitic diseases; G43.909 Migraine, unspecified, not intractable, without status migrainosus; Z87.19 Personal history of other diseases of the digestive system; Z88.1 Allergy status to other antibiotic agents; Z88.4 Allergy status to anesthetic agent; Z88.5 Allergy status to narcotic agent; Z88.8 Allergy status to other drugs, medicaments and biological substances; Z79.899 Other long term (current) drug therapy; Z79.82 Long term (current) use of aspirin
CPT/HCPCS: C9113

== ENCOUNTER 2018-12-09 13:34 | Emergency (ER) | payer OTHER ==
[~2018-12-09] VITALS: Ht 172.7 cm; Wt 73.6 kg
[~2018-12-09 13:34] MED LIST changes: -ASPI1TAB PO; +ASPI81TA26 PO; -CLON1TAB; +CLON1TAB8; +DIPH25CA PO; +HYDR-3713 PO; +IBUP-1022 PO; +MARI5CAP PO; +NEXI40GR PO; +ONDA4TAB6 PO; +PEPC1TAB5 PO; +TRAM50TA2 PO; +VALI5TAB PO; +ZOFR4TAB14 PO; +ZYRTTAB8 PO
[2018-12-09] MEDS ORDERED: FAMOTIDINE INJ 20MG/2ML VIAL (S0028) IVP ONE (14:00)
[2018-12-09] MEDS ORDERED: ONDANSETRON 4MG/2ML VIAL (J2405) IV ONE (14:00)
[2018-12-09] MEDS ORDERED: NS 1,000 ML IV ONE ×2 (14:00→15:00)
[2018-12-09 14:12] LABS: BASO % 0.4 % (0.0-1.0); EOS # 0.3 10^3/uL (0.0-0.50); EOS % 3.6 % (0.0-3.0); HEMATOCRIT 44.9 % (42.0-52.0); HEMOGLOBIN 15.5 g/dl (13.5-17.5); LYMPH # 1.3 10^3/uL (1.5-4.5); LYMPH % 18.3 % (24.0-44.0); MEAN CORPUSCULAR HEMOGLOBIN 34.8 pg (27.0-33.0); MEAN CORPUSCULAR HGB CONC 34.5 g/dl (32.0-36.5); MEAN CORPUSCULAR VOLUME 100.7 fl (80.0-96.0); MONO # 0.6 10^3/uL (0.0-0.8); MONO % 8.1 % (0.0-5.0); NEUTROPHILS % 69.3 % (36.0-66.0); PLATELET COUNT, AUTOMATED 182 10^3/uL (150-450); RED BLOOD COUNT 4.46 10^6/uL (4.30-6.10); WHITE BLOOD COUNT 7.2 10^3/uL (4.0-10.0)
[2018-12-09 14:44] LABS: ALBUMIN 3.7 GM/DL (3.2-5.2); ALT/SGPT 60 U/L (12-78); BLOOD UREA NITROGEN 11 MG/DL (7-18); CALCIUM LEVEL 9.2 MG/DL (8.5-10.1); CARBON DIOXIDE LEVEL 31 MEQ/L (21-32); CHLORIDE LEVEL 103 MEQ/L (98-107); CREATININE FOR GFR 1.11 MG/DL (0.70-1.30); GLOMERULAR FILTRATION RATE > 60.0 (>56); GLUCOSE, FASTING 103 MG/DL (70-100); POTASSIUM SERUM 3.9 MEQ/L (3.5-5.1); SODIUM LEVEL 139 MEQ/L (136-145); TOTAL PROTEIN 7.2 GM/DL (6.4-8.2)
[2018-12-09 16:35] VITALS: BP 139/88
== END 2018-12-09 16:37 | disposition home or self-care (01) ==
LOC: M ED 13:34
DX: G89.18 Other acute postprocedural pain (principal); R11.2 Nausea with vomiting, unspecified; R19.7 Diarrhea, unspecified; E07.9 Disorder of thyroid, unspecified; M79.7 Fibromyalgia; F43.10 Post-traumatic stress disorder, unspecified; Z79.899 Other long term (current) drug therapy; Z79.82 Long term (current) use of aspirin; Z88.1 Allergy status to other antibiotic agents; Z88.5 Allergy status to narcotic agent; Z88.8 Allergy status to other drugs, medicaments and biological substances
CPT/HCPCS: 80053; 85025; 96361; 96374; 96375; 99283; J2405

== ENCOUNTER → 2020-11-23 | Outpatient (CLI) | payer OTHER ==
[~2020-11-23] MED LIST changes: -DIPH25CA PO; +DIPH25CA32 PO; +ISOVUE-300 61% 50ML VIAL As Ordered ONE; +PROHANCE 279.3MG/ML 5ML VIAL As Ordered ONE
--- NOTE | 2020-11-23 09:09 | REP ---
INDICATION: PAIN LT SHOULDER,R/O LABRUM TEAR/ROTATOR CUFF TEAR. COMPARISON: None. TECHNIQUE: Coronal oblique T1, T2 fat sat, sagittal oblique T2 fat sat, axial T2 fat sat, gradient echo. FINDINGS: Rotator cuff: There is diffuse moderate tendinopathy/tendinitis of the supraspinatus and infraspinatus tendons. There is a full-thickness tear of the anterior aspect of the supraspinatus tendon. The gap in the tendon is approximately 1 cm. Acromioclavicular joint: There are moderate hypertrophic degenerative changes of the acromioclavicular joint. Acromion: Type 2 Biceps Tendon: In bicipital groove, no tenosynovitis. Hill Sach's deformity: None. Deltoid muscle: No abnormal signal. Biceps labral complex: There is tear of the biceps labral complex appear Labrum: There is a SLAP tear. Cartilage: There is mild chondromalacia at the glenohumeral joint. Bone marrow: No abnormal signal. Joint fluid: There is a moderate joint effusion. Fluid extends into the subacromial/subdeltoid bursae. IMPRESSION: Moderate tendinopathy/tendinitis supraspinatus and infraspinatus tendons. Full-thickness tear anterior supraspinatus tendon, with the gap in the tendon approximately 1 cm. Moderate hypertrophic degenerative changes acromioclavicular joint. There appears to be a tear of the biceps labral complex with an associated SLAP tear. Moderate joint effusion, fluid extends into the subacromial/subdeltoid bursae. <Electronically signed by Renaldo Phillip > 11/23/20 0905
== END ==
LOC: M RADPRO 06:45
PROVIDERS: ATTEND Physician Assistant
DX: M75.82 Other shoulder lesions, left shoulder (principal); M67.812 Other specified disorders of synovium, left shoulder; M25.412 Effusion, left shoulder; S96.211A Strain of intrinsic muscle and tendon at ankle and foot level, right foot, initial encounter; M25.512 Pain in left shoulder; X58.XXXA Exposure to other specified factors, initial encounter; Y92.89 Other specified places as the place of occurrence of the external cause; Y93.89 Activity, other specified; Y99.8 Other external cause status

== ENCOUNTER → 2021-02-15 | Outpatient (CLI) | payer OTHER ==
[~2021-02-15] MED LIST changes: -ISOVUE-300 61% 50ML VIAL As Ordered ONE; -PROHANCE 279.3MG/ML 5ML VIAL As Ordered ONE
[2021-02-15 10:52] LABS: BLOOD UREA NITROGEN 20 MG/DL (7-18); CALCIUM LEVEL 9.9 MG/DL (8.5-10.1); CARBON DIOXIDE LEVEL 33 MEQ/L (21-32); CHLORIDE LEVEL 104 MEQ/L (98-107); CREATININE FOR GFR 0.96 MG/DL (0.70-1.30); GLOMERULAR FILTRATION RATE > 60.0 (>56); GLUCOSE, FASTING 70 MG/DL (70-100); MAGNESIUM LEVEL 2.1 MG/DL (1.8-2.4); POTASSIUM SERUM 4.5 MEQ/L (3.5-5.1); SODIUM LEVEL 141 MEQ/L (136-145)
[2021-02-15 11:06] LABS: TOTAL 25(OH) VITAMIN D 24.3 NG/ML (30.0-100.0)
== END ==
LOC: M LAB 09:29
PROVIDERS: ATTEND Nurse Practitioner Family
DX: K31.84 Gastroparesis (principal); K22.70 Barrett's esophagus without dysplasia; E55.9 Vitamin D deficiency, unspecified

== ENCOUNTER → 2021-09-02 | Outpatient (REF) | LOC: M LABSMTC 10:02 | PROVIDERS: ATTEND Pediatrics | DX: Z11.52 Encounter for screening for COVID-19 (principal) ==

== ENCOUNTER → 2022-03-10 | Outpatient (REF) | payer OTHER | LOC: M LAB REF 09:23 | PROVIDERS: ATTEND Physician Assistant Medical | DX: K31.84 Gastroparesis (principal); K22.70 Barrett's esophagus without dysplasia; R14.0 Abdominal distension (gaseous) ==

== ENCOUNTER → 2022-04-20 | Outpatient (CLI) | payer OTHER ==
[2022-04-20 11:02] LABS: HEMATOCRIT 45.4 % (42.0-52.0); HEMOGLOBIN 15.5 g/dl (13.5-17.5); MEAN CORPUSCULAR HEMOGLOBIN 35.1 pg (27.0-33.0); MEAN CORPUSCULAR HGB CONC 34.1 g/dl (32.0-36.5); MEAN CORPUSCULAR VOLUME 102.7 fl (80.0-96.0); PLATELET COUNT, AUTOMATED 163 10^3/uL (150-450); RED BLOOD COUNT 4.42 10^6/uL (4.30-6.10); WHITE BLOOD COUNT 4.8 10^3/uL (4.0-10.0)
[2022-04-20 11:13] LABS: INR 1.01; PROTHROMBIN TIME 13.7 SECONDS (12.7-14.5)
[2022-04-20 11:30] LABS: BLOOD UREA NITROGEN 22 MG/DL (7-18); CARBON DIOXIDE LEVEL 32 MEQ/L (21-32); CHLORIDE LEVEL 106 MEQ/L (98-107); CREATININE FOR GFR 1.09 MG/DL (0.70-1.30); GLOMERULAR FILTRATION RATE > 60.0 (>56); GLUCOSE, FASTING 98 MG/DL (70-100); POTASSIUM SERUM 4.4 MEQ/L (3.5-5.1); SODIUM LEVEL 140 MEQ/L (136-145)
[2022-04-20 11:31] LABS: ALBUMIN 3.8 GM/DL (3.2-5.2); ALT/SGPT 40 U/L (12-78); BILIRUBIN,TOTAL 0.9 MG/DL (0.2-1.0); CALCIUM LEVEL 9.6 MG/DL (8.5-10.1)
[2022-04-20 13:19] LABS: ERYTHROCYTE SEDIMENTATION RATE 3 mm/hr (0-20)
== END ==
LOC: M RAD 10:05
PROVIDERS: ATTEND Orthopaedic Surgery
DX: M17.12 Unilateral primary osteoarthritis, left knee (principal)

== ENCOUNTER → 2022-10-13 | Outpatient (CLI) | payer OTHER ==
[~2022-10-13] MED LIST changes: +DIPH-435 PO; -DIPH25CA32 PO; +E-Z-GAS II EFFERVESCENT PACKET (SODIUM BICARB./CITRIC ACID/SIMETHICONE) As Ordered ONE; +E-Z-HD 98% w/w 340GM SUSP BTL As Ordered ONE; +E-Z-PAQUE 96% w/w SUSP 176GM BTL As Ordered ONE; +NYST-38; -NYST50SS
== END ==
LOC: M RAD 08:30
PROVIDERS: ATTEND Nurse Practitioner Family
DX: K22.70 Barrett's esophagus without dysplasia (principal); K31.84 Gastroparesis; K21.9 Gastro-esophageal reflux disease without esophagitis; K44.9 Diaphragmatic hernia without obstruction or gangrene

== ENCOUNTER → 2024-04-10 | Outpatient (REF) | payer OTHER ==
[~2024-04-10] MED LIST changes: -E-Z-GAS II EFFERVESCENT PACKET (SODIUM BICARB./CITRIC ACID/SIMETHICONE) As Ordered ONE; -E-Z-HD 98% w/w 340GM SUSP BTL As Ordered ONE; -E-Z-PAQUE 96% w/w SUSP 176GM BTL As Ordered ONE; +ONDA-282 PO; -ONDA4TAB6 PO
[2024-04-10 12:18] LABS: APPEARANCE, URINE CLEAR (CLEAR); BACTERIA, URINE AUTO NEGATIVE (NEGATIVE); BILIRUBIN, URINE AUTO NEGATIVE (NEGATIVE); BLOOD, URINE BLOOD NEGATIVE (NEGATIVE); COLOR, URINE STRAW (YELLOW); GLUCOSE, URINE (UA) AUTO NEGATIVE (NEGATIVE); KETONE, URINE AUTO NEGATIVE (NEGATIVE); LEUKOCYTE ESTERASE, URINE AUTO NEGATIVE (NEGATIVE); MUCUS, URINE SMALL (NEGATIVE); NITRITE, URINE AUTO NEGATIVE (NEGATIVE); PROTEIN, URINE AUTO NEGATIVE (NEGATIVE); RBC, URINE AUTO 0 /HPF (0-3); SPECIFIC GRAVITY URINE AUTO 1.013 (1.002-1.035); SQUAMOUS EPITHELIAL CELL UR AU 0 /HPF (0-6); UROBILINOGEN, URINE AUTO 0.2 mg/dL (0.0-2.0); WBC, URINE AUTO 0 /HPF (0-3)
== END ==
LOC: M SMT 10:14
PROVIDERS: ATTEND Physician Assistant
DX: R39.9 Unspecified symptoms and signs involving the genitourinary system (principal)

== ENCOUNTER → 2024-05-16 | Outpatient (CLI) | payer OTHER | LOC: M RAD 08:46 | PROVIDERS: ATTEND Physician Assistant | DX: N50.811 Right testicular pain (principal); N50.3 Cyst of epididymis ==

== ENCOUNTER 2024-09-06 10:21 | Emergency (ER) | payer OTHER ==
[~2024-09-06] VITALS: Ht 172.7 cm; Wt 69.1 kg
[~2024-09-06 10:21] MED LIST changes: -PRAV40TA2; +PRAV40TA2 PO
[2024-09-06] MEDS ORDERED: ISOVUE-370 76% 100ML VIAL As Ordered ONE (10:47)
[2024-09-06 11:06] LABS: BASO # 0.1 10^3/uL (0.0-0.2); BASO % 0.8 % (0.0-1.0); EOS # 0.3 10^3/uL (0.0-0.5); EOS % 4.7 % (0.0-3.0); HEMATOCRIT 47.7 % (42.0-52.0); HEMOGLOBIN 16.9 g/dl (13.5-17.5); LYMPH # 1.6 10^3/uL (1.5-5.0); LYMPH % 24.3 % (24.0-44.0); MEAN CORPUSCULAR HEMOGLOBIN 35.4 pg (27.0-33.0); MEAN CORPUSCULAR HGB CONC 35.4 g/dl (32.0-36.5); MEAN CORPUSCULAR VOLUME 99.8 fl (80.0-96.0); MONO # 0.5 10^3/uL (0.0-0.8); MONO % 7.6 % (2.0-8.0); NEUTROPHILS % 62.3 % (36.0-66.0); PLATELET COUNT, AUTOMATED 193 10^3/uL (150-450); RED BLOOD COUNT 4.78 10^6/uL (4.30-6.10); WHITE BLOOD COUNT 6.4 10^3/uL (4.0-10.0)
[2024-09-06 11:20] LABS: INR 0.99; PARTIAL THROMBOPLASTIN TIME 25.4 SECONDS (24.8-34.2); PROTHROMBIN TIME 13.4 SECONDS (12.5-14.5)
[2024-09-06 11:32] LABS: BLOOD UREA NITROGEN 29 MG/DL (9-23); CALCIUM LEVEL 10.1 MG/DL (8.3-10.6); CARBON DIOXIDE LEVEL 31 MMOL/L (20-31); CHLORIDE LEVEL 102 MMOL/L (98-107); CK-MB VALUE MASS 5.1 NG/ML (<3.6); CREATININE FOR GFR 0.95 MG/DL (0.70-1.30); GLOMERULAR FILTRATION RATE > 60.0 (>49); GLUCOSE, FASTING 113 MG/DL (74-106); POTASSIUM SERUM 4.3 MMOL/L (3.5-5.1); SODIUM LEVEL 140 MMOL/L (136-145)
[2024-09-06 11:33] LABS: FREE T4 1.02 NG/DL (0.89-1.76); THYROID STIMULATING HORMONE 2.064 uIU/ML (0.55-4.78)
[2024-09-06 11:36] LABS: CPK CREATINE PHOSPHOKINASE 255 U/L (46-171)
[2024-09-06] MEDS ORDERED: ADVITAB PO (11:50)
[2024-09-06] MEDS ORDERED: ESOM1CAP20 PO (11:50)
[2024-09-06] MEDS ORDERED: CETI10TA4 PO (11:50)
[2024-09-06] MEDS ORDERED: HOME MED LIST COMPLETE! XX SCH (11:55)
[2024-09-06 12:33] LABS: CK-MB VALUE MASS 4.9 NG/ML (<3.6)
[2024-09-06 12:42] LABS: MB/CK RELATIVE INDEX 2.14 (< OR =4)
[2024-09-06 16:23] VITALS: BP 118/78; TEMP 98.6; O2SAT 98
[2024-09-06] MEDS ORDERED: MECL-209 PO (16:24)
== END 2024-09-06 16:40 | disposition home or self-care (01) ==
LOC: M ED 10:21
DX: R42 Dizziness and giddiness (principal); R20.2 Paresthesia of skin; M48.02 Spinal stenosis, cervical region; E03.9 Hypothyroidism, unspecified; Z88.1 Allergy status to other antibiotic agents; Z88.5 Allergy status to narcotic agent; Z88.8 Allergy status to other drugs, medicaments and biological substances; Z79.899 Other long term (current) drug therapy
CPT/HCPCS: 36415; 70450; 70496; 70498; 70551; 71045; 72141; 80047; 80048; 82550; 82553; 84439; 84443; 84484; 85025; 85610; 85730; 86850; 86900; 86901; 93005; 93041; 94760; 99285; Q9967